=== PATIENT | male | born 1960 | race Two or more races ===

== ENCOUNTER 2020-06-20 03:22 | Inpatient (IN) | payer MEDICAID, OTHER ==
[~2020-06-20] VITALS: Ht 180.3 cm; Wt 62.1 kg
[2020-06-20] MEDS: SODIUM CHLORIDE 0.9% 1,000 ML IV SCH ×2 (01:30→15:43)
[2020-06-20] MEDS: OCTREOTIDE ACETATE 500 MCG in SODIUM CHL 0.9% 99 ML IV SCH ×2 (02:00→09:45)
[2020-06-20] MEDS ORDERED: PANTOPRAZOLE 40 MG/10 ML VIAL INJ IV ONE ×2 (04:00→21:03)
[2020-06-20] MEDS ORDERED: ONDANSETRON HCL 4 MG/2 ML VIAL IV ONE (04:00)
[2020-06-20] MEDS ORDERED: PANTOPRAZOLE 40mg/50ML NS AE 50 ML IV ONE (04:00)
[2020-06-20] MEDS ORDERED: MORPHINE SULFATE 4 MG/ML SYR/VIAL IV ONE (04:15)
[2020-06-20] MEDS ORDERED: OCTREOTIDE ACETATE 500 MCG in SODIUM CHL 0.9% 99 ML IV SCH ×2 (05:30→08:30)
[2020-06-20 05:51] LABS: Basophils # (auto) 0.1 10 ^3/uL (0-0.2); Basophils % (auto) 0.8 % (0.0-2.0); Eosinophils # (auto) 0.2 10 ^3/uL (0-0.8); Eosinophils % (auto) 2.6 % (0.0-7.0); Hemoglobin 11.1 g/dL (13.5-17.5); Lymphocytes # (auto) 1.5 10 ^3/uL (0.4-5.4); Mean Corpuscular Hemoglobin 34.7 pg (28.0-32.0); Monocytes # (auto) 0.9 10 ^3/uL (0-1.3)
[2020-06-20 05:54] LABS: Hematocrit 33.6 % (41.0-53.0); Lymphocytes % (auto) 16.6 % (10.0-50.0); Monocytes % (auto) 9.8 % (0.0-12.0); Neutrophils # (auto) 6.3 10 ^3/uL (1.6-8.6); Neutrophils % (auto) 70.2 % (37.0-80.0); Platelet Count (auto) 107 10^3/uL (140-450); Red Cell Distribution Width 15.9 % (11.8-14.3); White Blood Cell 8.9 10^3/uL (4.4-10.8)
[2020-06-20 06:08] LABS: INR 1.57 (0.9-1.15); Partial Thromboplastin Time 34.1 sec (23.0-31.2)
[2020-06-20 06:09] LABS: Albumin 1.8 g/dL (3.4-5.0); Anion Gap 8 (5-15); Blood Urea Nitrogen 25 mg/dL (7-18); Calcium 7.1 mg/dL (8.5-10.1); Carbon Dioxide 21 mmol/L (21-32); Chloride 110 mmol/L (98-107); Glucose 110 mg/dL (74-106); Potassium 5.3 mmol/L (3.5-5.1); Sodium 139 mmol/L (136-145)
[2020-06-20 06:13] LABS: Alanine Aminotransferase 38 U/L (16-61); Alkaline Phosphatase 202 U/L (45-117); Aspartate Aminotransferase 82 U/L (15-37); Bilirubin, Total 1.8 mg/dL (0.2-1.0); GFR African American 50 mL/min; GFR Non-African American 42 mL/min; Total Protein 5.2 g/dL (6.4-8.2)
[2020-06-20] MEDS ORDERED: ONDANSETRON HCL 4 MG/2 ML VIAL IV PRN (08:30)
[2020-06-20] MEDS ORDERED: SODIUM CHLORIDE 0.9% 1,000 ML IV SCH (08:30)
[2020-06-20] MEDS ORDERED: MORPHINE SULF INJ 2 MG/ML SYRINGE 1ML IV PRN (08:30)
[2020-06-20] MEDS ORDERED: phytonadione 5 MG in SODIUM CHL 0.9% 50 ML IV ONE (08:30)
[2020-06-20] MEDS ORDERED: NITROGLYCERIN 0.4 MG SL TAB SL PRN (08:30)
[2020-06-20] MEDS ORDERED: OCTREOTIDE ACETATE 100 MCG in SODIUM CHL 0.9% 50 ML IV ONE (09:00)
[2020-06-20] MEDS ORDERED: PHYTONADIONE (VIT K)10 MG/ML 1ML VIAL SUBCUT ONE (09:30)
[2020-06-20] MEDS: PANTOPRAZOLE 40mg/50ML NS AE 50 ML IV SCH ×4 (09:30→23:30)
[2020-06-20 10:16] LABS: Basophils # (auto) 0 10 ^3/uL (0-0.2); Eosinophils # (auto) 0.1 10 ^3/uL (0-0.8); Monocytes # (auto) 0.7 10 ^3/uL (0-1.3); Nucleated Red Blood Cells % 0.1 %
[2020-06-20 10:17] LABS: Basophils % (auto) 0.6 % (0.0-2.0); Eosinophils % (auto) 0.9 % (0.0-7.0); Hematocrit 35.5 % (41.0-53.0); Hemoglobin 11.9 g/dL (13.5-17.5); Lymphocytes # (auto) 1.4 10 ^3/uL (0.4-5.4); Lymphocytes % (auto) 15.7 % (10.0-50.0); Mean Corpuscular Hemoglobin 34.8 pg (28.0-32.0); Mean Corpuscular Hgb Conc. 33.5 g/dL (32.0-36.0); Mean Corpuscular Volume 103.9 fL (80.0-100.0); Monocytes % (auto) 7.8 % (0.0-12.0); Neutrophils # (auto) 6.6 10 ^3/uL (1.6-8.6); Platelet Count (auto) 120 10^3/uL (140-450); Red Blood Cells 3.42 10^6/uL (4.5-5.90); Red Cell Distribution Width 15.5 % (11.8-14.3); White Blood Cell 8.9 10^3/uL (4.4-10.8)
[2020-06-20] MEDS ORDERED: SODIUM CHLORIDE 0.9% 1,000 ML IV ONE ×2 (14:15→23:45)
[2020-06-20 15:17] LABS: BUN/Creatinine Ratio 13.2; Calcium 7.6 mg/dL (8.5-10.1)
[2020-06-20 15:22] LABS: Potassium 6.7 mmol/L (3.5-5.1)
[2020-06-20] MEDS ORDERED: SODIUM ZIRCONIUM CYCL 10 GM PAK PO ONE (15:30)
[2020-06-20] MEDS ORDERED: ALBUTEROL SULF 2.5 MG/0.5ML(0.5%) NEB SOLN NEB ONE (15:30)
[2020-06-20] MEDS ORDERED: InsuLIN REG 1unit/0.01ml Soln (100units/ml) IV ONE ×2 (15:30→23:30)
[2020-06-20] MEDS ORDERED: DEXTROSE (50%) 50ML SYRG IV ONE ×2 (15:30→23:30)
[2020-06-20] MEDS ORDERED: CALCIUM GLUC 4.65meq/50ml D5AE 50 ML IV ONE ×2 (15:45→23:30)
[2020-06-20 19:49] LABS: Basophils # (auto) 0 10 ^3/uL (0-0.2); Basophils % (auto) 0.4 % (0.0-2.0); Eosinophils # (auto) 0 10 ^3/uL (0-0.8); Eosinophils % (auto) 0.2 % (0.0-7.0); Hemoglobin 11.1 g/dL (13.5-17.5); Lymphocytes # (auto) 1.5 10 ^3/uL (0.4-5.4); Lymphocytes % (auto) 13.2 % (10.0-50.0); Mean Corpuscular Hemoglobin 33.8 pg (28.0-32.0); Mean Corpuscular Hgb Conc. 32.7 g/dL (32.0-36.0); Mean Corpuscular Volume 103.2 fL (80.0-100.0); Monocytes % (auto) 8.8 % (0.0-12.0); Neutrophils # (auto) 8.6 10 ^3/uL (1.6-8.6); Neutrophils % (auto) 77.4 % (37.0-80.0); Nucleated Red Blood Cells % 0.2 %; Platelet Count (auto) 122 10^3/uL (140-450); Red Blood Cells 3.29 10^6/uL (4.5-5.90); Red Cell Distribution Width 15.7 % (11.8-14.3); White Blood Cell 11.1 10^3/uL (4.4-10.8)
[2020-06-20 21:13] LABS: Protein, Urine 77.2 mg/dL (0.0-11.9)
[2020-06-20 21:38] LABS: BUN/Creatinine Ratio 11.4; Calcium 7.8 mg/dL (8.5-10.1)
[2020-06-20 21:46] LABS: Potassium 6.1 mmol/L (3.5-5.1)
[2020-06-20] MEDS ORDERED: MORPHINE SULF INJ 2 MG/ML SYRINGE 1ML IM ONE (23:45)
[2020-06-20] MEDS ORDERED: MIDAZOLAM HCL 1MG/1ML-2 ML VIAL ONE (23:53)
[2020-06-20] MEDS ORDERED: SUCCINYLCHOLINE CHLORIDE 20 MG/ML 10ML VIAL IV ONE (23:55)
[2020-06-20] MEDS ORDERED: ETOMIDATE (2MG/ML) 20ML VIAL IV ONE (23:55)
[2020-06-21] VITALS (30 sets, daily range): BP systolic 50–172; BP diastolic 15–134
[2020-06-21] MEDS ORDERED: SODIUM BICARBONATE 8.4% INJ 50ML SYRINGE ONE ×2 (00:06→08:29)
[2020-06-21 00:21] LABS: Basophils # (auto) 0.1 10 ^3/uL (0-0.2); Basophils % (auto) 0.6 % (0.0-2.0); Eosinophils # (auto) 0.1 10 ^3/uL (0-0.8); Eosinophils % (auto) 0.4 % (0.0-7.0); Hematocrit 32.7 % (41.0-53.0); Hemoglobin 9.8 g/dL (13.5-17.5); Lymphocytes # (auto) 4.9 10 ^3/uL (0.4-5.4); Lymphocytes % (auto) 32.8 % (10.0-50.0); Mean Corpuscular Hemoglobin 34.3 pg (28.0-32.0); Mean Corpuscular Hgb Conc. 30.1 g/dL (32.0-36.0); Mean Corpuscular Volume 114.2 fL (80.0-100.0); Monocytes # (auto) 1.6 10 ^3/uL (0-1.3); Monocytes % (auto) 10.4 % (0.0-12.0); Neutrophils # (auto) 8.3 10 ^3/uL (1.6-8.6); Neutrophils % (auto) 55.8 % (37.0-80.0); Nucleated Red Blood Cells % 0.1 %; Platelet Count (auto) 113 10^3/uL (140-450); Red Blood Cells 2.87 10^6/uL (4.5-5.90); Red Cell Distribution Width 17.2 % (11.8-14.3); White Blood Cell 14.9 10^3/uL (4.4-10.8)
[2020-06-21] MEDS ORDERED: NOREPINEPHRINE 8 MG/250ML KIT 250 ML IV ONE ×2 (00:32→10:23)
[2020-06-21] MEDS ORDERED: MIDAZOLAM DRIP 50 mg/50mL 50 ML IV ONE (00:33)
[2020-06-21 00:39] LABS: BUN/Creatinine Ratio 10.8; Calcium 7.9 mg/dL (8.5-10.1)
[2020-06-21 00:41] LABS: Potassium 6.1 mmol/L (3.5-5.1)
[2020-06-21] MEDS ORDERED: NOREPINEPHRINE 8 MG/250ML KIT 250 ML IV SCH ×2 (01:00→11:00)
[2020-06-21] MEDS ORDERED: ETOMIDATE (2MG/ML) 20ML VIAL IV ONE (01:00)
[2020-06-21] MEDS ORDERED: SUCCINYLCHOLINE CHLORIDE 20 MG/ML 10ML VIAL IV ONE (01:00)
[2020-06-21] MEDS ORDERED: SODIUM BICARBONATE 8.4 % INJ 50ML VIAL IV ONE ×2 (01:00→08:30)
[2020-06-21] MEDS: MIDAZOLAM DRIP 50 mg/50mL 50 ML IV SCH ×2 (01:00→06:00)
[2020-06-21] MEDS ORDERED: FLUMAZENIL 0.1 MG/ML INJ 10ML MDV IV ONE (02:58)
[2020-06-21] MEDS ORDERED: NALOXONE HCL 0.4 MG/ML VIAL ONE (02:58)
[2020-06-21] MEDS ORDERED: diphenhdrAMINE HCL 50 MG/1 ML VL ONE (02:59)
[2020-06-21] MEDS ORDERED: SODIUM CHLORIDE LOCK 10 ML ONE (02:59)
[2020-06-21] MEDS ORDERED: MIDAZOLAM HCL 5 MG/ML-1ML VIAL ONE (02:59)
[2020-06-21] MEDS ORDERED: EPINEPHrine HCL 1 MG/10 ML SYRG ONE (03:00)
[2020-06-21] MEDS ORDERED: fentaNYL CITRATE 100 MCG/2 ML VL ONE ×2 (03:00→07:57)
[2020-06-21] MEDS ORDERED: VASOPRESSIN 20 UNIT/ML ONE (03:31)
[2020-06-21] MEDS ORDERED: VASOPRESSIN 50 UNITS in D5W 5% 247.5 ML IV SCH (03:45)
[2020-06-21] MEDS ORDERED: ALBUMIN 25% 100 ML IV ONE ×3 (03:49→14:00)
[2020-06-21] MEDS ORDERED: PHENYLEPHRINE IV 250 ML IV ONE ×2 (04:25→09:16)
[2020-06-21] MEDS: PANTOPRAZOLE 40mg/50ML NS AE 50 ML IV SCH (04:30)
[2020-06-21] MEDS ORDERED: PHENYLEPHRINE IV 250 ML IV SCH (04:45)
[2020-06-21 04:47] LABS: Basophils # (auto) 0 10 ^3/uL (0-0.2); Basophils % (auto) 0.1 % (0.0-2.0); Eosinophils # (auto) 0 10 ^3/uL (0-0.8); Eosinophils % (auto) 0.1 % (0.0-7.0); Hematocrit 35.4 % (41.0-53.0); Lymphocytes # (auto) 1.4 10 ^3/uL (0.4-5.4); Lymphocytes % (auto) 6.9 % (10.0-50.0); Mean Corpuscular Hgb Conc. 31.2 g/dL (32.0-36.0); Mean Corpuscular Volume 105.7 fL (80.0-100.0); Monocytes # (auto) 2.8 10 ^3/uL (0-1.3); Monocytes % (auto) 13.4 % (0.0-12.0); Neutrophils # (auto) 16.6 10 ^3/uL (1.6-8.6); Neutrophils % (auto) 79.5 % (37.0-80.0); Nucleated Red Blood Cells % 0.3 %; Platelet Count (auto) 87 10^3/uL (140-450); Red Blood Cells 3.35 10^6/uL (4.5-5.90); Red Cell Distribution Width 17.6 % (11.8-14.3); White Blood Cell 20.8 10^3/uL (4.4-10.8)
[2020-06-21] MEDS: OCTREOTIDE ACETATE 500 MCG in SODIUM CHL 0.9% 99 ML IV SCH (05:45)
[2020-06-21 05:51] LABS: INR 1.86 (0.9-1.15); Partial Thromboplastin Time 36.3 sec (23.0-31.2)
[2020-06-21] MEDS: SODIUM CHLORIDE 0.9% 1,000 ML IV SCH (06:34)
[2020-06-21 06:42] LABS: Albumin 2.2 g/dL (3.4-5.0); Calcium 7.3 mg/dL (8.5-10.1); Magnesium 2.3 mg/dL (1.6-2.6)
[2020-06-21 06:47] LABS: Bilirubin, Direct 1.1 mg/dL (0-0.2); Bilirubin, Total 2.2 mg/dL (0.2-1.0)
[2020-06-21 06:49] LABS: BUN/Creatinine Ratio 9.8; Potassium 7.5 mmol/L (3.5-5.1)
[2020-06-21] MEDS ORDERED: DEXTROSE (50%) 50ML SYRG IV ONE ×2 (07:00→20:18)
[2020-06-21] MEDS ORDERED: CALCIUM GLUC 4.65meq/50ml D5AE 50 ML IV ONE ×2 (07:00→14:57)
[2020-06-21] MEDS ORDERED: InsuLIN REG 1unit/0.01ml Soln (100units/ml) IV ONE (07:00)
[2020-06-21] MEDS ORDERED: MIDAZOLAM HCL 1MG/1ML-2 ML VIAL ONE (07:57)
[2020-06-21] MEDS ORDERED: HEPARIN SODIUM (PORCINE) 5000 UNITS/ML 1ML VIAL ONE ×2 (08:18→11:49)
[2020-06-21] MEDS ORDERED: LIDOCAINE 2%HCL (LOCAL ANESTH.) INJ 20ML MDV ONE (08:22)
[2020-06-21] MEDS ORDERED: HEPARIN SODIUM (PORCINE) 5000 UNITS/ML 1ML VIAL IV ONE (08:30)
[2020-06-21] MEDS ORDERED: SODIUM CHL 0.9% 1000 ML BAG XX ONE ×2 (08:45→11:00)
[2020-06-21] MEDS ORDERED: IODIXANOL 320MG/ML 100ML BTL IV ONE ×2 (09:50→10:11)
[2020-06-21] MEDS ORDERED: IOHEXOL 350 MG/ML 100ML IJ ONE ×2 (10:11→11:26)
[2020-06-21] MEDS ORDERED: SODIUM BICARBONATE 50ML VIAL 75 ML in D5W/SOD CHL 0.45% 1,000 ML IV SCH (11:00)
[2020-06-21] MEDS ORDERED: BUMETANIDE 2.5mg/10ml (0.25 mg/ml) INJ IV SCH (11:00)
[2020-06-21 11:48] LABS: Hepatitis A Ab IgM Negative; Hepatitis B Core IgM Negative; Hepatitis B Surface Antigen Negative (Negative); Hepatitis C Antibody Negative (Negative)
[2020-06-21] MEDS ORDERED: DOBUTamine 1000MCG/ML 250 ML IV SCH (13:15)
[2020-06-21] MEDS ORDERED: VANCOMYCIN 1GM/250ML 250 ML IV ONE (13:15)
[2020-06-21] MEDS ORDERED: DOPamine 1600MCG/ML D5W 250 ML IV SCH (13:15)
[2020-06-21] MEDS ORDERED: PIPERACILLIN-TAZOB 2.25GM 50 ML IV SCH (14:00)
[2020-06-21] MEDS ORDERED: InsuLIN REG 1unit/0.01ml Soln (100units/ml) ONE (14:57)
[2020-06-21 15:38] LABS: Eosinophils # (auto) 0 10 ^3/uL (0-0.8); Lymphocytes # (auto) 2.5 10 ^3/uL (0.4-5.4); Monocytes # (auto) 1.8 10 ^3/uL (0-1.3); Monocytes % (auto) 7.7 % (0.0-12.0)
[2020-06-21 15:40] LABS: Basophils # (auto) 0 10 ^3/uL (0-0.2); Basophils % (auto) 0.1 % (0.0-2.0); Hematocrit 33.9 % (41.0-53.0); Hemoglobin 11.1 g/dL (13.5-17.5); Lymphocytes % (auto) 10.7 % (10.0-50.0); Mean Corpuscular Hgb Conc. 32.8 g/dL (32.0-36.0); Mean Corpuscular Volume 97.7 fL (80.0-100.0); Neutrophils # (auto) 18.9 10 ^3/uL (1.6-8.6); Neutrophils % (auto) 81.5 % (37.0-80.0); Nucleated Red Blood Cells % 0.8 %; Platelet Count (auto) 32 10^3/uL (140-450); Red Blood Cells 3.47 10^6/uL (4.5-5.90); Red Cell Distribution Width 18.7 % (11.8-14.3); White Blood Cell 23.2 10^3/uL (4.4-10.8)
[2020-06-21] MEDS ORDERED: EPINEPHrine HCL 1 MG/10 ML SYRG IV ONE (20:18)
[2020-06-21] MEDS ORDERED: SODIUM BICARBONATE 8.4% INJ 50ML SYRINGE IV ONE (20:18)
== END 2020-06-21 21:40 | disposition expired | DRG 182 ==
LOC: EDBD 03:22 → ER 03:26 → OVERFLOW 03:27 → ICU WEST 06-21 12:15
PROVIDERS: ADMIT Internal Medicine; ATTEND Internal Medicine
PROC: 30233N1 Transfusion of Nonautologous Red Blood Cells into Peripheral Vein, Percutaneous Approach (ICD-10-PCS; 2020-06-21)
PROC: 0DJ08ZZ Inspection of Upper Intestinal Tract, Via Natural or Artificial Opening Endoscopic (ICD-10-PCS; 2020-06-21)
PROC: 06W Lower Veins, Revision (ICD-10-PCS; 2020-06-21)
PROC: B543ZZZ Ultrasonography of Right Jugular Veins (ICD-10-PCS; 2020-06-21)
PROC: 04L23DZ Occlusion of Gastric Artery with Intraluminal Device, Percutaneous Approach (ICD-10-PCS; 2020-06-21)
PROC: B51V1ZZ Fluoroscopy of Other Veins using Low Osmolar Contrast (ICD-10-PCS; 2020-06-21)
PROC: 067 Lower Veins, Dilation (ICD-10-PCS; 2020-06-21)
PROC: 067 Lower Veins, Dilation (ICD-10-PCS; 2020-06-21)
PROC: 05HM33Z Insertion of Infusion Device into Right Internal Jugular Vein, Percutaneous Approach (ICD-10-PCS; 2020-06-21)
PROC: 5A1935Z Respiratory Ventilation, Less than 24 Consecutive Hours (ICD-10-PCS; 2020-06-21)
PROC: 0BH17EZ Insertion of Endotracheal Airway into Trachea, Via Natural or Artificial Opening (ICD-10-PCS; 2020-06-21)
PROC: 5A12012 Performance of Cardiac Output, Single, Manual (ICD-10-PCS; principal; 2020-06-21 02:30)
DX: I86.4 Gastric varices (principal); R57.8 Other shock; J96.00 Acute respiratory failure, unspecified whether with hypoxia or hypercapnia; I85.11 Secondary esophageal varices with bleeding; K74.60 Unspecified cirrhosis of liver; D62 Acute posthemorrhagic anemia; N17.9 Acute kidney failure, unspecified; E87.5 Hyperkalemia; D68.4 Acquired coagulation factor deficiency; D69.6 Thrombocytopenia, unspecified; J98.11 Atelectasis; K76.6 Portal hypertension; D68.9 Coagulation defect, unspecified; Z20.828 Contact with and (suspected) exposure to other viral communicable diseases; R18.8 Other ascites; K76.7 Hepatorenal syndrome; E87.2 Acidosis; I50.9 Heart failure, unspecified; I95.9 Hypotension, unspecified
CPT/HCPCS: 36415; 36600; 71045; 74176; 76775; 76942; 80048; 80053; 80074; 80076; 80320; 82570; 82805; 83735; 83880; 84156; 84300; 84484; 85025; 85610; 85730; 86850; 86900; 86901; 86920; 87040; 87070; 87205; 90935; 94002; 94003; 94640; 99152; 99153; C1889; C9113; G0378; J0330; J0610; J1642; J1815; J2250; J2405; J3430; J7060; P9047; Q9967